=== PATIENT | female | born 1985 | race Caucasian/White ===

== ENCOUNTER 2016-12-06 18:21 | Emergency (ER) | payer MEDICAID ==
[2016-12-06 19:16] LABS: BASO % 0.1 % (0.0-2.0); EOS % 0.3 % (0.0-4.0); HEMATOCRIT 37.5 % (34.0-47.0); LYMPH # 1.1 K/uL (1.0-4.3); LYMPH % 8.1 % (20.0-40.0); MEAN CORPUSCULAR HEMOGLOBIN 30.3 pg (27.0-31.0); MEAN CORPUSCULAR HGB CONC 33.6 g/dL (33.0-37.0); MONO # 0.6 K/uL (0.0-0.8); MONO % 4.7 % (0.0-10.0); PLATELET COUNT 292 K/uL (130-400); RED CELL DISTRIBUTION WIDTH 13.2 % (11.5-14.5); WHITE BLOOD COUNT 13.5 K/uL (4.8-10.8)
[2016-12-06 19:27] LABS: CHLORIDE 104 mmol/L (98-107); POTASSIUM 3.9 mmol/L (3.6-5.2); SODIUM 140 mmol/L (132-148)
[2016-12-06 19:29] LABS: GFR AFRICAN-AMERICAN > 60
[2016-12-06 19:30] LABS: ALB/GLOB RATIO 1.1 (1.0-2.1); ALKALINE PHOSPHATASE 74 U/L (38-126); ALT/SGPT 29 U/L (9-52); AST/SGOT 25 U/L (14-36); BILIRUBIN,TOTAL 0.3 mg/dL (0.2-1.3); BLOOD UREA NITROGEN 10 mg/dL (7-17); CARBON DIOXIDE 21 mmol/L (22-30); GLUCOSE,RANDOM 99 mg/dL (65-105); TOTAL PROTEIN 7.7 g/dL (6.3-8.3)
[2016-12-06 19:31] LABS: RBC URINE 8 /hpf (0-3); URINE BACTERIA OCC (<OCC); URINE BILIRUBIN NEGATIVE (NEGATIVE); URINE BLOOD NEGATIVE (NEGATIVE); URINE COLOR Yellow (YELLOW); URINE GLUCOSE (UA) NORMAL (Normal); URINE KETONE NEGATIVE (NEGATIVE); URINE LEUKOCYTE ESTERASE 2+ Leu/uL (Negative); URINE PROTEIN 1+ mg/dL (NEGATIVE); URINE UROBILINOGEN NORMAL mg/dL (0.2-1.0); WBC URINE 27 /hpf (0-5)
[2016-12-06 19:31] LABS: CALCIUM 8.9 mg/dl (8.6-10.4)
--- NOTE | 2016-12-06 19:33 | C.PDOC ---
History Of Present Illness Cecilia is a 31 y/o female with a history of seizure disorder, presenting after witnessed seizure just prior to arrival. witnessed 3 seizures while she was lying in bed. No head trauma, urinary incontinence, or tongue biting. Patient is supposed to be taking Keppra. Reports she has follow up scheduled with her neurologist next week. Seizures today were consistent with her usual seizures, which involve her right side. Reports she is under a lot of stress right now, which usually triggers her seizures. Denies any other injuries, cough , shortness of breath, fever, or chest pain. PMD: [facility] [place] Clinic Time Seen by Provider: 12/06/16 18:46 Chief Complaint (Nursing): Seizure History Per: Patient History/Exam Limitations: no limitations Recent Seizure Activity Began: Just Before Arrival Number Of Seizures: Multiple (3) Quality Of Seizure: Focal Involving: (right-sided) Additional History Per: Family () Past Medical History Reviewed: Historical Data, Nursing Documentation, Vital Signs Vital Signs: Last Vital Signs Temp 99 F 12/06/16 20:32 Pulse 98 H 12/06/16 20:32 Resp 16 12/06/16 20:32 BP 101/63 12/06/16 20:32 Pulse Ox 96 12/06/16 21:06 - Medical History PMH: Seizures Surgical History: No Surg Hx Family History: States: No Known Family Hx - Social History Hx Alcohol Use: No Hx Substance Use: No - Immunization History Hx Tetanus Toxoid Vaccination: No Hx Influenza Vaccination: Yes (last week) Hx Pneumococcal Vaccination: No Review Of Systems Except As Marked, All Systems Reviewed And Found Negative. Constitutional: Negative for: Other (Tongue biting, head injury) Cardiovascular: Negative for: Chest Pain Respiratory: Negative for: Cough, Shortness of Breath Gastrointestinal: Negative for: Nausea, Vomiting Genitourinary: Negative for: Incontinence Neurological: Positive for: Seizures Physical Exam - Physical Exam Appears: Non-toxic, No Acute Distress Skin: Normal Color, Warm, Dry Head: Atraumatic, Normacephalic Eye(s): bilateral: Normal Inspection, PERRL, EOMI Oral Mucosa: Moist Neck: Normal, Supple Chest: Symmetrical Cardiovascular: Rhythm Regular, No Murmur Respiratory: Normal Breath Sounds, No Accessory Muscle Use Gastrointestinal/Abdominal: Normal Exam, Soft, No Tenderness Back: Normal Inspection, No CVA Tenderness, No Vertebral Tenderness Extremity: Normal ROM, No Pedal Edema, No Deformity Neurological/Psych: Oriented x3, Normal Speech, Normal Cranial Nerves Gait: Steady ED Course And Treatment - Laboratory Results Result Diagrams: 12/06/16 19:13 12/06/16 19:13 O2 Sat by Pulse Oximetry: 96 (RA) Pulse Ox Interpretation: Normal Medical Decision Making Medical Decision Making: Time: 18:54 Initial Plan: --Urine test --Labs ordered --Given 500 mg Keppra IV --Pending reevaluation 20:37 Labs reviewed, and are clinically significant for UTI. Patient afebrile with no vomiting or flank pain. Abdomen soft NT/ND. On reevaluation, patient is medically stable. Will be discharged home with Keflex. Patient was counseled on the importance of compliance with Keppra regimen. Follow up with neurologist in 2 days. Disposition - Disposition Disposition: HOME/ ROUTINE Disposition Time: 20:37 Condition: GOOD Additional Instructions: Follow-up with neurologist within 2 days. Return to ED if condition worsens. Take seizure medication as prescribed. Take full course of antibiotics. Prescriptions: Cephalexin [Keflex] 500 mg PO BID #14 capsule Instructions: Urinary Tract Infection in Women (ED) Forms: [facility] (Maltese) - Clinical Impression Clinical Impression: UTI (urinary tract infection), Seizure
[2016-12-06 19:58] LABS: NEUTROPHIL 83 % (50-75); TOTAL CELLS COUNTED 100
[2016-12-06 20:34] VITALS: BP 101/63; PULSE 98; RESP 16; TEMP 99
[2016-12-06 20:39] VITALS: O2SAT 96
== END 2016-12-06 21:00 | disposition home or self-care (01) ==
LOC: C.ER 18:21
DX: N39.0 Urinary tract infection, site not specified (principal); G40.909 Epilepsy, unspecified, not intractable, without status epilepticus
CPT/HCPCS: 80053; 81001; 85025; 96374; 99285; J1953